=== PATIENT | male | born 1980 | race Caucasian/White ===

== ENCOUNTER 2022-03-23 14:05 | Inpatient (IN) | payer MEDICAID ==
[~2022-03-23] VITALS: Ht 177.8 cm; Wt 81.6 kg
[2022-03-23 14:13] VITALS: BP 124/66
--- NOTE | 2022-03-23 14:16 | NUR ---
42/M WALKED IN C/O RECTAL PAIN X 6 DAYS ACCOMPANIED BY SCROTAL PAIN AND SWELLING. DENIES BLOOD IN URINE. DENIES DYSURIA. AAO4, AMBULATORY, VITALS STABLE. PMH: DENIES
[2022-03-23] MEDS ORDERED: KETOROLAC 30 MG/ML VIAL IM ONE (15:15)
[2022-03-23 15:45] LABS: APPEARANCE,URINE CLEAR (CLEAR); BILIRUBIN,URINE 1+ (NEGATIVE); BLOOD, URINE TRACE-I (NEGATIVE); COLOR,URINE YELLOW (YELLOW); LEUKOCYTE ESTERASE ,URINE NEGATIVE (NEGATIVE); NITRITE, URINE NEGATIVE (NEGATIVE); UGLUCOSE 3+ (NEGATIVE)
[2022-03-23 15:52] LABS: RBC,URINE 0-5 /HPF (0-5); WBC,URINE 0-5 /HPF (0-5)
[2022-03-23 15:53] LABS: OTHER CASTS, URINE None Seen /LPF (None Seen)
[2022-03-23 16:00] VITALS: BP 116/65
[2022-03-23 16:21] LABS: BASOPHILS % (AUTO) 0.3 % (0.0-2.0); EOSINOPHILS % (AUTO) 0.2 % (0.0-4.0); HEMATOCRIT 37.8 % (36-52); HEMOGLOBIN 12.9 g/dL (12.0-18.0); LYMPHOCYTES % (AUTO) 8.2 % (20.5-51.1); MEAN CORPUSCULAR HEMOGLOBIN 30 pg (27-31); MEAN CORPUSCULAR HGB CONC 34 g/dL (33-37); MEAN CORPUSCULAR VOLUME 87.5 fL (80-94); MONOCYTES # (AUTO) 2.3 K/uL (0.8-1.0); MONOCYTES % (AUTO) 18.1 % (1.7-9.3); NEUTROPHILS # (AUTO) 9.1 K/uL (1.8-7.7); NEUTROPHILS % (AUTO) 73.2 % (42.2-75.2); PLATELET COUNT (AUTO) 148 K/uL (140-450); RED BLOOD CELL COUNT(AUTO) 4.32 MIL/uL (4.20-6.10); RED CELL DISTRIBUTION WIDTH 13.2 % (11.6-13.7); WHITE BLOOD COUNT (AUTO) 12.5 K/uL (4.8-10.8)
[2022-03-23 16:44] LABS: ALBUMIN 2.8 g/dL (3.4-5.0); ANION GAP 23.3 (8-16); CARBON DIOXIDE 14.9 mmol/L (21-32); CREATININE 0.8 mg/dL (0.6-1.3); POTASSIUM 3.2 mmol/L (3.5-5.1); TOTAL BILIRUBIN 0.8 mg/dL (0.0-1.0)
[2022-03-23] MEDS ORDERED: NACL 0.9% 1,000 ML IV ONE ×3 (16:50→19:00)
--- NOTE | 2022-03-23 17:00 | NUR ---
VBG DRAWN AND SENT TO RT. IV ESTABLISHED TO RIGHT AC WITH 20G
[2022-03-23] MEDS ORDERED: SULFAMETH/TRIMETH DS 800/160MG 1 TAB PO ONE (17:10)
[2022-03-23] MEDS ORDERED: INSULIN REGULAR, HUMAN 100 UNIT/ML VIAL IVP ONE (17:10)
[2022-03-23] MEDS ORDERED: POTASSIUM CHLORIDE 10 MEQ TABER PO ONE (17:25)
[2022-03-23] MEDS ORDERED: KCL 20 MEQ/WATER INJ PREMIX 100 ML IV ONE (17:25)
--- NOTE | 2022-03-23 17:37 | NUR ---
COVID SWAB COLLECTED AND SENT TO LAB
[2022-03-23] MEDS ORDERED: NACL 0.9% 1,500 ML IV SCH (17:55)
[2022-03-23] MEDS ORDERED: METO100T14 PO (18:08)
[2022-03-23] MEDS ORDERED: DOCUSATE SODIUM 100 MG GELCAP PO PRN (18:15)
[2022-03-23] MEDS ORDERED: ZOLPIDEM 5 MG TAB PO PRN (18:15)
[2022-03-23] MEDS ORDERED: guaiFENesin DM 200/20 MG-10 ML 10 ML UDC PO PRN (18:15)
[2022-03-23] MEDS ORDERED: ONDANSETRON 4 MG/2 ML VIAL IM/IVP PRN (18:15)
[2022-03-23] MEDS ORDERED: DEXTROSE 50% 50 ML SYR IVP PRN (18:15)
[2022-03-23] MEDS ORDERED: POTASSIUM CHLORIDE 10 MEQ TABER PO PRN (18:15)
--- NOTE | 2022-03-23 18:36 | NUR ---
PT WENT TO CT
[2022-03-23] MEDS: INSULIN LANTUS 100 UNITS/ML 10 ML VIAL SUBQ SCH (18:40)
[2022-03-23 18:43] LABS: CHOL/HDL RATIO 9.4 (1-4.5); FREE T4 (FREE THYROXINE) 1.59 ng/dL (0.76-1.46); MAGNESIUM 1.5 mg/dL (1.8-2.4); PHOSPHORUS 2.4 mg/dL (2.5-4.9); THYROID STIMULATING HORMONE 1.74 uIU/mL (0.34-3.74)
[2022-03-23 18:44] LABS: PROTHROMBIN TIME 13.6 secs (10.8-13.4)
--- NOTE | 2022-03-23 19:48 | NUR ---
RECEIVED A SHIFT REPORT FOR LASHONDA MCNULTY RN, PATIENT WILL BE ARRIVING SOON FOR ADMISSION. [email or web address]
--- NOTE | 2022-03-23 19:50 | NUR ---
Patient will be admitted to care of Telemetry Nurse Shannon. Admited to telemetry. Will go to room 107A. Belongings list completed. Report to Telemetry Nurse Shannon. Telemetry Nurse Shannon verbalized understanding of report, not further questions.
--- NOTE | 2022-03-23 19:59 | NUR ---
RECEIVED PATIENT VIA GURNEY BUT PATIENT CAN AMBULATE INDEPENDENTLY. PATIENT GAIT WAS STEADY BUT SLOW BECAUSE OF RECTAL PAIN. PATIENT DENIED AN PAIN JUST DISCOMFORT OF RECTAL AREA DURING MOVEMENT. DENIED PAIN MEDICATION AT THIS TIME. PATIENT WAS ABLE TO GIVE ALL OF HIS MEDICAL HISTORY WITHOUT INCIDENT. PATIENT ON ROOM AIR. IV NOTED ON RIGHT AC CLEAN AND PATENT AND WITHOUT PAIN. PATIENT WAS GIVEN AN INTRODUCTION TO HIS ROOM, HOW THE CALL LIGHT WORKS. RESTROOM AND VISITING HOURS FOR HIS SIGNIFICANT OTHER TO RETURN TOMORROW FOR VISITING HOURS. SIDE RAILS UP X 2 FOR SAFETY AND ADJUSTMENTS. CALL LIGHT WITHIN REACH. [email or web address]
[2022-03-23 20:00] VITALS: BP 102/66
[2022-03-23 20:17] LABS: ANION GAP 20.1 (8-16); CARBON DIOXIDE 16.4 mmol/L (21-32); CREATININE 0.7 mg/dL (0.6-1.3); POTASSIUM 3.5 mmol/L (3.5-5.1)
[2022-03-23] MEDS: BLOOD GLUCOSE MONITORING 1 DEV DEV FS SCH (21:06)
[2022-03-23] MEDS: INSULIN LISPRO SLIDING SCALE 100 UNITS/ML VIAL SUBQ PRN (21:06)
[2022-03-23] MEDS ORDERED: PANTOPRAZOLE 40 MG INJ VIAL IVP ONE (23:40)
[2022-03-24] VITALS: BP 121/67
--- NOTE | 2022-03-24 00:06 | NUR ---
RECEIVED ORDERS FOR PATIENT COMPLAINING OF HEARTBURN FOR ONE TIME ONLY IVP OF PROTONIX [address] PARR. ANY OTHER NON URGENT MATTERS WILL BE ADDRESSED IN THE MORNING. PATIENT VOMITED 200 ML. COVERING RN (SAPPHIRE GALINDO) WILL GIVE PRN OF ZOFRAN AND THE NEW ORDER FOR PROTONIX. [email or web address]
[2022-03-24 00:41] LABS: BARBITURATE, URINE NEGATIVE ng/ml (NEG <=200); BENZODIAZEPINE, URINE NEGATIVE ng/mL (NEG <=200); CANNABINOID, URINE NEGATIVE ng/mL (NEG <=50); COCAINE, URINE NEGATIVE ng/mL (NEG <=300); OPIATE, URINE NEGATIVE ng/mL (NEG <=2000); PHENCYCLIDINE SCREEN,URINE NEGATIVE ng/mL (NEG <=25)
--- NOTE | 2022-03-24 03:15 | NUR ---
PATIENT IN BED UN ABLE TO SLEEP BECAUSE OF HEARTBURN. NURSING WILL ENDORSE TO AM SHIFT OF THE COMPLAINTS AND THE PAIN PATIENT HAS BEEN IN DURING THE SHISFT. HOPEFULLY WE CAN GET IV PAIN MANAGEMENT FOR PAIN/DISCOMFORT. [email or web address]
[2022-03-24 04:00] VITALS: BP 127/62
[2022-03-24] MEDS: HYDROcodone/APAP 7.5/325 MG 1 TAB PO PRN ×4 (04:29→18:22)
--- NOTE | 2022-03-24 05:09 | NUR ---
PATIENT WAS GIVEN NORCO OF RECTAL DISCOMFORT. BLOOD PRESSURE WAS NOTED AT 127/62. PATIENT WAS CONCERNED OR BP MEDICATIONS AND WAS GIVEN EDUCATION ON THE CURRENT ORDERS AND WHEN THE MD COMES IN SPEAK WITH HIM REGARDING ANY CHANGED TO MEDICATIONS. PATIENT UNDERSTOOD AND AGREED. [email or web address]
[2022-03-24 06:26] LABS: BASOPHILS % (AUTO) 0.1 % (0.0-2.0); EOSINOPHILS % (AUTO) 0.1 % (0.0-4.0); HEMATOCRIT 36.8 % (36-52); HEMOGLOBIN 12.2 g/dL (12.0-18.0); LYMPHOCYTES # (AUTO) 1.1 K/uL (2.0-11.5); LYMPHOCYTES % (AUTO) 7.4 % (20.5-51.1); MEAN CORPUSCULAR HEMOGLOBIN 30 pg (27-31); MEAN CORPUSCULAR HGB CONC 33 g/dL (33-37); MONOCYTES # (AUTO) 2.7 K/uL (0.8-1.0); MONOCYTES % (AUTO) 17.7 % (1.7-9.3); NEUTROPHILS # (AUTO) 11.4 K/uL (1.8-7.7); PLATELET COUNT (AUTO) 158 K/uL (140-450); RED BLOOD CELL COUNT(AUTO) 4.09 MIL/uL (4.20-6.10); RED CELL DISTRIBUTION WIDTH 13.4 % (11.6-13.7); WHITE BLOOD COUNT (AUTO) 15.3 K/uL (4.8-10.8)
[2022-03-24 06:53] LABS: ANION GAP 23.4 (8-16); CREATININE 0.8 mg/dL (0.6-1.3); POTASSIUM 3.9 mmol/L (3.5-5.1)
[2022-03-24] MEDS: BLOOD GLUCOSE MONITORING 1 DEV DEV FS SCH ×4 (06:56→20:49)
[2022-03-24] MEDS: INSULIN LISPRO SLIDING SCALE 100 UNITS/ML VIAL SUBQ PRN ×4 (06:56→20:48)
[2022-03-24 07:19] LABS: NEUTROPHILS % (AUTO) 74.7 % (42.2-75.2)
[2022-03-24 07:23] LABS: CARBON DIOXIDE 9.5 mmol/L (21-32)
--- NOTE | 2022-03-24 07:25 | NUR ---
RECEIVED PATIENT FROM OFFC SPEC NURSE FOR CONTINUITY OF CARE. PT IS AOX4, ABLE TO MAKE NEEDS KNOWN. ON ROOM AIR AND NO RESPIRATORY DISTRESS NOTED. SKIN IS WARM, DRY, AND INTACT. HAS RAC IV INTACT AND PATENT, INFUSING FLUIDS WELL. DENIES PAIN AT THE MOMENT. PLAN OF CARE DISCUSSED. SAFETY PRECAUTIONS IN PLACE. CALL LIGHT WITHIN REACH. WILL CONTINUE TO MONITOR.
[2022-03-24 08:00] VITALS: BP 123/59
[2022-03-24] MEDS: PANTOPRAZOLE 40 MG TABEC PO SCH (08:04)
[2022-03-24 08:07] LABS: T4 (THYROXINE) 8.1 ug/dL (4.5-12.0)
[2022-03-24] MEDS: INSULIN LANTUS 100 UNITS/ML 10 ML VIAL SUBQ SCH (08:07)
[2022-03-24] MEDS ORDERED: NACL 0.9% 1,000 ML IV SCH (09:30)
--- NOTE | 2022-03-24 09:30 | NUR ---
ALL SCHEDULED MEDS GIVEN. PT IS STABLE. NO DISTRESS NOTED. WILL CONTINUE TO MONITOR.
--- NOTE | 2022-03-24 10:19 | NUR ---
PT COMPLAINED OF 6/10 PAIN IN PERINEAL AREA. ADMINISTERED PRN PAIN MEDS PER MD ORDERED.
[2022-03-24] MEDS ORDERED: SODIUM BICARBONATE 8.4% 50 MEQ in DEXTROSE 5% 1,000 ML IV SCH (11:00)
[2022-03-24 12:00] VITALS: BP 121/68
[2022-03-24] MEDS: SODIUM BICARBONATE 8.4% 150 MEQ in DEXTROSE 5% 1,000 ML IV SCH ×2 (14:41→22:10)
[2022-03-24 16:00] VITALS: BP 120/62
[2022-03-24] MEDS: ACETAMINOPHEN 325 MG TAB PO PRN ×2 (17:19→21:28)
--- NOTE | 2022-03-24 17:19 | NUR ---
PT COMPLAINED OF 3/10 PAIN IN PERINEAL AREA. ADMINISTERED PRN PAIN MEDS PER MD ORDERED.
--- NOTE | 2022-03-24 18:22 | NUR ---
PT COMPLAINED OF 6/10 PAIN IN PERINEAL AREA. ADMINISTERED PRN PAIN MEDS PER MD ORDERED.
--- NOTE | 2022-03-24 19:25 | NUR ---
RECEIVED PATIENT FROM AM NURSE FOR CONTINUITY OF CARE. PT IS STABLE
[2022-03-24 20:00] VITALS: BP 113/55
[2022-03-25] VITALS: BP 118/63
--- NOTE | 2022-03-25 | NUR ---
PATIENT SLEEPING AT THIS TIME. NO S/SX OF DISTRESS NOTED
[2022-03-25] MEDS: HYDROcodone/APAP 7.5/325 MG 1 TAB PO PRN ×2 (01:33→07:01)
[2022-03-25 04:00] VITALS: BP 124/60
[2022-03-25] MEDS: SODIUM BICARBONATE 8.4% 150 MEQ in DEXTROSE 5% 1,000 ML IV SCH (06:14)
[2022-03-25] MEDS: INSULIN LISPRO SLIDING SCALE 100 UNITS/ML VIAL SUBQ PRN ×4 (06:33→20:56)
[2022-03-25 06:36] LABS: BASOPHILS % (AUTO) 0.3 % (0.0-2.0); EOSINOPHILS # (AUTO) 0.1 K/uL (0-0.4); EOSINOPHILS % (AUTO) 0.5 % (0.0-4.0); HEMATOCRIT 36.4 % (36-52); HEMOGLOBIN 12.2 g/dL (12.0-18.0); LYMPHOCYTES # (AUTO) 1.1 K/uL (2.0-11.5); MEAN CORPUSCULAR HEMOGLOBIN 29 pg (27-31); MEAN CORPUSCULAR HGB CONC 34 g/dL (33-37); MEAN CORPUSCULAR VOLUME 87.8 fL (80-94); NEUTROPHILS # (AUTO) 10.6 K/uL (1.8-7.7); PLATELET COUNT (AUTO) 178 K/uL (140-450); RED BLOOD CELL COUNT(AUTO) 4.15 MIL/uL (4.20-6.10); RED CELL DISTRIBUTION WIDTH 13.5 % (11.6-13.7); WHITE BLOOD COUNT (AUTO) 13.7 K/uL (4.8-10.8)
[2022-03-25] MEDS: BLOOD GLUCOSE MONITORING 1 DEV DEV FS SCH ×4 (06:42→20:57)
[2022-03-25] MEDS ORDERED: HYDROcodone/APAP 5/325 MG 1 TAB TAB ONE ×2 (06:59→07:08)
--- NOTE | 2022-03-25 07:30 | NUR ---
RECEIVED PT FROM ADVERTISER NURSE FOR CONTINUITY OF CARE. PT IS STABLE.
[2022-03-25 07:40] LABS: CARBON DIOXIDE 21.7 mmol/L (21-32); CREATININE 0.7 mg/dL (0.6-1.3)
[2022-03-25] MEDS: ACETAMINOPHEN 325 MG TAB PO PRN (07:49)
[2022-03-25 07:59] LABS: POTASSIUM 2.7 mmol/L (3.5-5.1)
[2022-03-25 08:00] VITALS: BP 114/56
[2022-03-25 08:28] LABS: LYMPHOCYTES % (AUTO) 8.1 % (20.5-51.1); MONOCYTES % (AUTO) 14.3 % (1.7-9.3); NEUTROPHILS % (AUTO) 76.8 % (42.2-75.2)
[2022-03-25] MEDS: PANTOPRAZOLE 40 MG TABEC PO SCH (08:46)
[2022-03-25] MEDS ORDERED: INSULIN LANTUS 100 UNITS/ML 10 ML VIAL SUBQ SCH (09:00)
--- NOTE | 2022-03-25 09:21 | NUR ---
PATIENT HAS BEEN SCREENED AND CATEGORIZED HIGH NUTRITION RISK. PATIENT WILL BE SEEN WITHIN 1-2 DAYS OF ADMISSION. 03/23/22-03/25/[address] REFERRAL RECEIVED FOR UNCONTROLLED DIABETES
[2022-03-25] MEDS ORDERED: KCL 20 MEQ/WATER INJ PREMIX 200 ML IV ONE (09:25)
--- NOTE | 2022-03-25 09:30 | NUR ---
ALL SCHEDULED MEDS GIVEN. PT IS STABLE. NO DISTRESS NOTED. WILL CONTINUE TO MONITOR.
[2022-03-25] MEDS: KETOROLAC 30 MG/ML VIAL IVP PRN ×2 (13:06→20:16)
--- NOTE | 2022-03-25 13:06 | NUR ---
PT COMPLAINED OF 9/10 PAIN IN PERINEAL AREA. ADMINISTERED PRN PAIN MEDS PER MD ORDERED.
[2022-03-25] MEDS ORDERED: POTASSIUM CHLORIDE 10 MEQ TABER PO SCH (13:09)
--- NOTE | 2022-03-25 13:12 | NUR ---
DID NOT ADMINISTERED SCHEDULED ONE TIME KDUR [address] MANCUSO THAT PATIENT ALREADY RECEIVED KDUR 40 MEQ PO THIS MORNING AND CURRENTLY RUNNING KRIDER 40 MEQ IV.
[2022-03-25] MEDS ORDERED: MAG SULF 2000 MG/WATER PREMIX 50 ML IV SCH (13:18)
[2022-03-25] MEDS: NACL 0.9% 1,000 ML IV SCH (14:19)
[2022-03-25 16:00] VITALS: BP 106/64
--- NOTE | 2022-03-25 18:09 | NUR ---
BS CHECK WAS 209. ADMINISTERED 4 UNITS OF INSULIN SQ PER MD ORDERED.
--- NOTE | 2022-03-25 19:29 | NUR ---
ENDORSED TO SOCIAL SERVICES DIRECTOR NURSE FOR CONTINUITY OF CARE. PT IS STABLE.
--- NOTE | 2022-03-25 19:30 | NUR ---
RECEIVED PT FROM AM NURSE FOR CONTINUITY OF CARE. PT IS STABLE
--- NOTE | 2022-03-25 20:13 | NUR ---
03/25/22 RD INITIAL ASSESSMENT COMPLETED. PLEASE REFER TO NUTRITION ASSESSMENT UNDER CARE ACTIVITY FOR ESTIMATED NUTRITIONAL NEEDS. 1. CONTINUE CLEAR LIQUID, 60 G CCHO DIET TOLERATED. -WHEN/IF MEDICALLY APPROPRIATE, GRADUALLY ADVANCE TO 60 G CCHO DIET, REGULAR TEXTURE 2. MONITOR BLOOD GLUCOSE 3. PROVIDED DIABETIC EDUCATION WITH HANDOUT 4. RD TO FOLLOW-UP 3-5 DAYS, MODERATE RISK KARLA DILL RD
[2022-03-26] MEDS: ACETAMINOPHEN 325 MG TAB PO PRN (02:59)
[2022-03-26 04:00] VITALS: BP 119/69
[2022-03-26] MEDS: KETOROLAC 30 MG/ML VIAL IVP PRN (06:07)
[2022-03-26 06:15] LABS: BASOPHILS # (AUTO) 0.1 K/uL (0.00-0.22); BASOPHILS % (AUTO) 0.6 % (0.0-2.0); EOSINOPHILS # (AUTO) 0.1 K/uL (0-0.4); EOSINOPHILS % (AUTO) 0.6 % (0.0-4.0); HEMATOCRIT 35.6 % (36-52); HEMOGLOBIN 12.2 g/dL (12.0-18.0); LYMPHOCYTES # (AUTO) 1.3 K/uL (2.0-11.5); LYMPHOCYTES % (AUTO) 11.1 % (20.5-51.1); MEAN CORPUSCULAR HEMOGLOBIN 29 pg (27-31); MEAN CORPUSCULAR HGB CONC 34 g/dL (33-37); MEAN CORPUSCULAR VOLUME 85.6 fL (80-94); MONOCYTES # (AUTO) 1.5 K/uL (0.8-1.0); MONOCYTES % (AUTO) 13.4 % (1.7-9.3); NEUTROPHILS # (AUTO) 8.5 K/uL (1.8-7.7); NEUTROPHILS % (AUTO) 74.3 % (42.2-75.2); PLATELET COUNT (AUTO) 238 K/uL (140-450); RED BLOOD CELL COUNT(AUTO) 4.16 MIL/uL (4.20-6.10); WHITE BLOOD COUNT (AUTO) 11.5 K/uL (4.8-10.8)
[2022-03-26 06:33] LABS: ANION GAP 10.9 (8-16); CARBON DIOXIDE 28.5 mmol/L (21-32); CREATININE 0.5 mg/dL (0.6-1.3)
[2022-03-26] MEDS: INSULIN LISPRO SLIDING SCALE 100 UNITS/ML VIAL SUBQ PRN ×4 (06:44→21:22)
[2022-03-26] MEDS: BLOOD GLUCOSE MONITORING 1 DEV DEV FS SCH ×4 (06:46→21:18)
[2022-03-26 08:00] VITALS: BP 104/60
[2022-03-26] MEDS: INSULIN LANTUS 100 UNITS/ML 10 ML VIAL SUBQ SCH (08:55)
[2022-03-26] MEDS: PANTOPRAZOLE 40 MG TABEC PO SCH (08:58)
[2022-03-26] MEDS: TAMSULOSIN 0.4 MG CAP PO SCH (08:58)
--- NOTE | 2022-03-26 09:00 | NUR ---
ADMINISTERED ALL SCHEDULED MEDS. PT TOLERATING WELL.
[2022-03-26 09:46] LABS: POTASSIUM 2.4 mmol/L (3.5-5.1)
[2022-03-26] MEDS: NACL 0.9% 1,000 ML IV SCH (10:10)
[2022-03-26] MEDS ORDERED: POTASSIUM CHLORIDE 10 MEQ TABER PO SCH (10:15)
--- NOTE | 2022-03-26 10:15 | NUR ---
DR COTTON ORDERED PT TO TAKE 60MEQ ORAL POTASSIUM AND IV K RIDER.
[2022-03-26] MEDS ORDERED: KCL 20 MEQ/WATER INJ PREMIX 200 ML IV SCH (11:00)
[2022-03-26] MEDS: HYDROcodone/APAP 7.5/325 MG 1 TAB PO PRN ×2 (13:07→21:06)
--- NOTE | 2022-03-26 13:07 | NUR ---
PT C/O PAIN 08/04 ON SCROTUM. REQUEST TAKING NORCO. STATES THAT THE IV PAIN MEDICATION MAKES HIM FEEL DIZZY AND HE DOESN'T WANT TO TAKE THAT RIGHT NOW. PT MEDICATED WITH NORCO. TOLERATING WELL.
--- NOTE | 2022-03-26 14:47 | NUR ---
MAKING ROUNDS PT IN BED AWAKE RESTING.
[2022-03-26 16:00] VITALS: BP 104/57
--- NOTE | 2022-03-26 19:00 | NUR ---
ENDORSED PT TO TITLE SEARCHER NURSE. PT IN STABLE CONDITION.
--- NOTE | 2022-03-26 21:06 | NUR ---
PT COMPLAINTS A LOT OF PAIN ON NADIR AREA 10/10, PT VERBALIZES TO TAKE NORCO 7.5 ONLY AND REFUSE OTHER PAIN MEDICATION.
--- NOTE | 2022-03-26 21:22 | NUR ---
PT BLOOD SUGAR = 200 = 2 UNITS INSULIN HUMOLOG ADMINISTERED.
--- NOTE | 2022-03-27 00:30 | NUR ---
ASSUMED CARE OF PATIENT AT THIS TIME. PATIENT SLEEPING COMFORTABLY WITH NO ACUTE DISTRESS NOTED. IVF INFUSING WITH NO REDNESS OR IRRITATION TO SITE. WILL CONTINUE TO MONITOR FOR SAFETY. Radha CORNELL RN
[2022-03-27 04:00] VITALS: BP 110/60
[2022-03-27] MEDS: BLOOD GLUCOSE MONITORING 1 DEV DEV FS SCH ×4 (06:27→20:20)
[2022-03-27] MEDS: NACL 0.9% 1,000 ML IV SCH (06:28)
--- NOTE | 2022-03-27 06:28 | NUR ---
PATIENT BLOOD SUGAR 171. NO INSULIN GIVEN DUE TO PATIENT BEING NPO FOR SURGERY TODAY. Radha CORNELL RN.
--- NOTE | 2022-03-27 07:20 | NUR ---
ASSUMED CONTINUITY OF CARE. INITIAL ASSESSMENT DONE. KEEP COMFORTABLE ON BED. EXPLAINED DIAGNOSIS, PLAN OF CARE. PAIN MANAGEMENT TEACHING, PRE-OP, USE OF CALL LIGHT/BED/TV/BATHROOM. VERBALIZED UNDERSTANDING. CALL LIGHT WITHIN REACH.
[2022-03-27 07:23] LABS: HEMATOCRIT 33.8 % (36-52); HEMOGLOBIN 11.8 g/dL (12.0-18.0); MEAN CORPUSCULAR HEMOGLOBIN 30 pg (27-31); MEAN CORPUSCULAR HGB CONC 35 g/dL (33-37); MEAN CORPUSCULAR VOLUME 85.4 fL (80-94); PLATELET COUNT (AUTO) 304 K/uL (140-450); RED BLOOD CELL COUNT(AUTO) 3.96 MIL/uL (4.20-6.10); RED CELL DISTRIBUTION WIDTH 13.3 % (11.6-13.7); WHITE BLOOD COUNT (AUTO) 13.3 K/uL (4.8-10.8)
[2022-03-27 07:31] LABS: ANION GAP 10.9 (8-16); CREATININE 0.6 mg/dL (0.6-1.3)
[2022-03-27 08:00] VITALS: BP 106/59
[2022-03-27 08:24] LABS: POTASSIUM 2.9 mmol/L (3.5-5.1)
[2022-03-27] MEDS: TAMSULOSIN 0.4 MG CAP PO SCH (08:30)
[2022-03-27] MEDS: INSULIN LANTUS 100 UNITS/ML 10 ML VIAL SUBQ SCH (09:00)
[2022-03-27] MEDS ORDERED: POTASSIUM CHLORIDE 40 MEQ, LIDOCAINE 1% 25 MG in NACL 0.9% 250 ML IV SCH (09:00)
[2022-03-27] MEDS: PANTOPRAZOLE 40 MG TABEC PO SCH (09:00)
[2022-03-27 10:30] LABS: MYELOCYTES % 1 % (0-0)
[2022-03-27 10:56] LABS: EOSINOPHILS % (MANUAL) 2 % (0-4); LYMPHOCYTES % (MANUAL) 11 % (20-46); MONOCYTES % (MANUAL) 13 % (5-12)
--- NOTE | 2022-03-27 11:21 | NUR ---
WENT TO VIA S[facility]OR. IN STABLE CONDITION. ROCEPHIN 1 GM IVPB GIVEN TO JADA -BROOD STATION MANAGER DUE TO Neeta ALVAREZ IV STILL INFUSING. Addendum: 03/27/22 at 1541 by David Abernathy LVN LVN ADDED INFORMATION: PT. WENT TO OR.
[2022-03-27] MEDS ORDERED: fentaNYL citrate 0.05 MG/ML VIAL ONE (11:55)
[2022-03-27] MEDS ORDERED: PROPOFOL 200 MG/20 ML VIAL IV ONE (11:56)
[2022-03-27] MEDS ORDERED: SEVOFLURANE 250 ML BTL INH ONE (12:25)
[2022-03-27] MEDS ORDERED: BUPIVACAINE-MPF/EPI 0.5% 30 ML VIAL INJ ONE (12:27)
[2022-03-27] MEDS ORDERED: LIDOCAINE 1% 500 MG/50 ML VIAL ONE ×2 (12:27→12:28)
[2022-03-27] MEDS ORDERED: ONDANSETRON 4 MG/2 ML VIAL ONE (12:40)
[2022-03-27] MEDS ORDERED: DEXAMETHASONE 4 MG/ML VIAL ONE (12:42)
[2022-03-27] MEDS ORDERED: MEPERIDINE 50 MG/ML SYR ONE (12:43)
[2022-03-27] MEDS ORDERED: MEPERIDINE 25 MG/ML SYR ONE ×2 (13:03)
--- NOTE | 2022-03-27 13:55 | NUR ---
BACK FROM OR VIA GURANGELI. A & O X4. NO C/O PAIN. KEEP COMFORTABLE ON BED. CALL LIGHT WITHIN REACH. JADA EmeryPRODUCTION BROACHER REPORTED THAT ROCEPHIN 1 GM IVPB WAS GIVEN AT 1230.
[2022-03-27 14:00] VITALS: BP 109/62
--- NOTE | 2022-03-27 14:13 | NUR ---
DR. OBANDO CAME AND SPOKE TO PT. AND PT. FAMILY MEMBERS AT BEDSIDE. INFORMED DR. OBANDO ABOUT PT. LEFT INGUINAL DRAINAGE. GOT ORDER FROM DR. OBANDO OF US LEFT INGUINAL. INFORMED CHARGE NURSE GAGAN DUPREE.
[2022-03-27 14:30] VITALS: BP 107/66
[2022-03-27 15:00] VITALS: BP 112/67
--- NOTE | 2022-03-27 15:22 | NUR ---
US TECH CAME FOR PT. US AT BEDSIDE.
[2022-03-27 16:00] VITALS: BP 112/65
--- NOTE | 2022-03-27 16:14 | NUR ---
DC PLANNING RACHAEL MET WITH PT AT BEDSIDE TO COMPLETE ASSESSMENT. PT ALERT AND ORIENTED AND ABLE TO PROVIDE ALL OF HER OWN INFORMATION.PT REPORTS RESIDING IN A SINGLE-STORY HOME, AT THE ADDRESS LISTED ON FILE. PT IDENTIFIED AN AWAN, GF, EMERGENCY CONTACT AND DECLINED TO ADD ADDITIONAL CONTACT. PT DENIES AD IN PLACE AND ACCEPTED AD OFFERED BY RACHAEL. PT REPORTS LAST VISIT WITH PCP 1 YR AGO. SPOKE TO PT ABOUT THE IMPORTANCE OF FOLLOWING UP WITH [facility], TO OBTAIN FULL SCOPE MEDI-KAYLIE. EXPLAINED TO PT IF HE DOES NOT HEAR FROM REP THAT HE MUST FOLLOW UP WITH [facility] OFFICE AND TURNING IN ALL REQUIRES DOCUMENTS SO THAT FULL SCOPE MEDICAL IS OBTAINED. PT REPORTS MEDICATION COMPLIANCE HOWEVER, PT REPORTS RECEIVING MEDICATION FROM [facility] THAT CAN BE DIFFICULT TO OBTAIN. PT REPORTS BEING INDEPENDENT AND DENIES USE OF DME, PT REPORTS REQUIRING ASSISTANCE WITH ADL'S THAT HIS GF AIDS WITH. PT DENIES HX OF DIABETES, DIALYSIS TX. PT REPORTS CHRONIC USE OF ALCOHOL USE, PT REPORTS DRINKING EVERYDAY AND REPORTS DRINKING 12 PACK ALONE. RACHAEL PROVIDED PT WITH PSYCHO EDUCATION ON LONG-TERM ALCOHOL USE, PT RECEPTIVE AND ACCEPTED SUBSTANCE USE RESOURCES OFFERED BY RACHAEL. PT DENIES HH, AND SNF PLACEMENT. PT REPORTS DC PLAN IS TO RETURN HOME WITH GF P/UP, WHEN STABLE. Addendum: 03/27/22 at 1617 by Osman RUTHERFORD Amended: Links added.
[2022-03-27] MEDS: INSULIN LISPRO SLIDING SCALE 100 UNITS/ML VIAL SUBQ PRN ×2 (16:24→20:21)
--- NOTE | 2022-03-27 19:26 | NUR ---
REPORT GIVEN TO REJI DUPREE FOR CONTINUITY OF CARE. IVF INFUSING WELL. IN STABLE CONDITION.
--- NOTE | 2022-03-27 19:27 | NUR ---
RECEIVED PT FROM MORNING SHIFT NURSE. PT LYING ON THE BED WITH ON BEDSIDE. PT IS AOX4, BEDREST, ABLE TO VERBALIZE NEEDS AND ABLE TO FOLLOW COMMANDS. PT IS ON 2L NC AND ON CCHO DIET. PT HAS IV ON RIGHT AC GAUGE 20 RUNNING WITH NS AT 50 ML/HR. PT SKIN IS INTACT BUT PT HAS LEFT INGUINAL ABCESS WITH DRESSING AND FOR WOUND EVAL GREYSON. PT DENIES PAIN. NO S/S OF RESPIRATORY DISTRESS NOTED. ALL SAFETY MEASURES IMPLEMENTED. BED IN LOW POSITION, BED WHEELS ON LOCK AND CALL LIGHT WITHIN REACH.
--- NOTE | 2022-03-27 20:20 | NUR ---
PT BLOOD GLUCOSE ID 37. HUMALOG INSULIN 4 UNITS WAS GIVEN TO PT. ALL SAFETY MEASURES IMPLEMENTED. BED IN LOW POSITION, BED WHEELS ON LOCK AND CALL LIGHT WITHIN REACH. Addendum: 03/28/22 at 0641 by Magaly Earl RN WRONG DATA
--- NOTE | 2022-03-27 20:20 | NUR ---
PT BLOOD GLUCOSE IS 237. HUMALOG INSULIN 4 UNITS WAS GIVEN TO PT. ALL SAFETY MEASURES IMPLEMENTED. BED IN LOW POSITION, BED WHEELS ON LOCK AND CALL LIGHT WITHIN REACH.
--- NOTE | 2022-03-27 22:00 | NUR ---
PT WAS GIVEN ICE CHIPS PER PT REQUEST. PT DENIES PAIN AT THIS TIME. NO S/S OF RESPIRATORY DISTRESS NOTED. ALL SAFETY MEASURES IMPLEMENTED. BED IN LOW POSITION, BED WHEELS ON LOCK AND CALL LIGHT WITHIN REACH.
[2022-03-28] VITALS: BP 106/67
--- NOTE | 2022-03-28 | NUR ---
PT REQUEST TO CHANGE HIS BEDDING AND WAS GIVEN DISPOSABLE UNDERWEAR AND CHANGED WOUND DRESSING. ALL SAFETY MEASURES IMPLEMENTED. BED IN LOW POSITION, BED WHEELS ON LOCK AND CALL LIGHT WITHIN REACH.
--- NOTE | 2022-03-28 02:00 | NUR ---
PT IS ON SLEEP. CHEST RISE AND FALL SYMMETRICALLY NOTED. RESPIRATION IS EVEN AND UNLABORED. ALL SAFETY MEASURES IMPLEMENTED. BED IN LOW POSITION, BED WHEELS ON LOCK AND CALL LIGHT WITHIN REACH.
[2022-03-28] MEDS: NACL 0.9% 1,000 ML IV SCH ×2 (02:19→22:11)
--- NOTE | 2022-03-28 04:00 | NUR ---
PT WAS GIVEN ADDITIONAL WARM BLANKET PER PT REQUEST. NO COMPLAIN OF PAIN AT THIS TIME. NO S/S OF RESPIRATORY DISTRESS NOTED. ALL SAFETY MEASURES IMPLEMENTED. BED IN LOW POSITION, BED WHEELS ON LOCK AND CALL LIGHT WITHIN REACH.
[2022-03-28] MEDS: BLOOD GLUCOSE MONITORING 1 DEV DEV FS SCH ×4 (06:37→20:51)
[2022-03-28] MEDS: INSULIN LISPRO SLIDING SCALE 100 UNITS/ML VIAL SUBQ PRN ×4 (06:37→20:51)
--- NOTE | 2022-03-28 06:37 | NUR ---
PT BLOOD GLUCOSE IS 195. HUMALOG INSULIN 2 UNITS WAS GIVEN TO PT. ALL SAFETY MEASURES IMPLEMENTED. BED IN LOW POSITION, BED WHEELS ON LOCK AND CALL LIGHT WITHIN REACH.
[2022-03-28 07:14] LABS: BASOPHILS % (AUTO) 0.1 % (0.0-2.0); HEMOGLOBIN 12.1 g/dL (12.0-18.0); LYMPHOCYTES % (AUTO) 8.6 % (20.5-51.1); MEAN CORPUSCULAR HEMOGLOBIN 29 pg (27-31); MEAN CORPUSCULAR HGB CONC 34 g/dL (33-37); MEAN CORPUSCULAR VOLUME 87.3 fL (80-94); MONOCYTES # (AUTO) 0.9 K/uL (0.8-1.0); MONOCYTES % (AUTO) 7.8 % (1.7-9.3); NEUTROPHILS # (AUTO) 9.9 K/uL (1.8-7.7); NEUTROPHILS % (AUTO) 83.5 % (42.2-75.2); PLATELET COUNT (AUTO) 364 K/uL (140-450); RED BLOOD CELL COUNT(AUTO) 4.12 MIL/uL (4.20-6.10); RED CELL DISTRIBUTION WIDTH 13.1 % (11.6-13.7); WHITE BLOOD COUNT (AUTO) 11.9 K/uL (4.8-10.8)
[2022-03-28 07:17] LABS: ANION GAP 15.4 (8-16); CARBON DIOXIDE 25.1 mmol/L (21-32); CREATININE 0.5 mg/dL (0.6-1.3); POTASSIUM 3.5 mmol/L (3.5-5.1)
--- NOTE | 2022-03-28 07:42 | NUR ---
PT IS STABLE. NO ACUTE EVENTS THROUGHOUT THE NIGHT.NO S/SX OF DISTRESS AT THIS MOMENT.ALL NEEDS ATTENDED. ALL PRECAUTIONS IN PLACE. CALL LIGHT WITHIN REACH. ENDORSED TO DAY RN.
[2022-03-28 08:00] VITALS: BP 109/68
[2022-03-28] MEDS: TAMSULOSIN 0.4 MG CAP PO SCH (09:01)
[2022-03-28] MEDS: PANTOPRAZOLE 40 MG TABEC PO SCH (09:01)
[2022-03-28] MEDS: INSULIN LANTUS 100 UNITS/ML 10 ML VIAL SUBQ SCH (09:08)
[2022-03-28] MEDS: HYDROcodone/APAP 7.5/325 MG 1 TAB PO PRN ×2 (12:37→20:57)
[2022-03-28 16:00] VITALS: BP 116/65
[2022-03-28] MEDS: metFORMIN 850 MG TAB PO SCH (17:09)
--- NOTE | 2022-03-28 19:43 | NUR ---
ENDORSE PATIENT IN STABLE CONDITION TO PM SHIFT NURSE WHILE PIV INFUSING NS @50ML/HR VIA RAC 20G SITE
--- NOTE | 2022-03-28 19:44 | NUR ---
RECEIVED REPORT FROM DAY SHIFT NURSE RAINE FOR CONTINUITY OF CARE. PT AWAKE WITH FAMILY MEMBER AT BEDSIDE. RESPIRATIONS EVEN AND UNLABORED ON RA. IV SITE ON RAC 20G INFUSING IVF. INITIAL ASSESSMENT DONE. POC DISCUSSED WITH THE PT AND RN BRIE. CALL LIGHT WITHIN REACH. SAFETY PRECAUTIONS IN PLACE.
[2022-03-28 20:00] VITALS: BP 114/68
--- NOTE | 2022-03-28 20:00 | NUR ---
Patient's Plan of Care was discussed and reviewed with JUAN: OTTO
--- NOTE | 2022-03-28 20:57 | NUR ---
SLIDING SCALE INSULIN GIVEN FOR BS 260. PT COMPLAINED OF 6/10. PRN PAIN MED ADMINISTERED PER MD ORDERED.
[2022-03-29] MEDS: HYDROcodone/APAP 7.5/325 MG 1 TAB PO PRN ×2 (03:49→10:52)
--- NOTE | 2022-03-29 03:49 | NUR ---
PT COMPLAINED OF PAIN 08/04. PRN PAIN MED GIVEN MD ORDERED. V/S TAKEN, WITHIN NORMAL LIMITS.
[2022-03-29 04:00] VITALS: BP 108/69
[2022-03-29] MEDS: INSULIN LISPRO SLIDING SCALE 100 UNITS/ML VIAL SUBQ PRN ×3 (06:33→17:32)
[2022-03-29] MEDS: BLOOD GLUCOSE MONITORING 1 DEV DEV FS SCH ×3 (06:33→16:30)
--- NOTE | 2022-03-29 06:41 | NUR ---
BLOOD SUGAR CHECK DONE. SLIDING SCALE INSULIN ADMINISTERED.
[2022-03-29 06:59] LABS: BASOPHILS % (AUTO) 0.4 % (0.0-2.0); EOSINOPHILS # (AUTO) 0.1 K/uL (0-0.4); EOSINOPHILS % (AUTO) 1.2 % (0.0-4.0); HEMOGLOBIN 11.3 g/dL (12.0-18.0); LYMPHOCYTES # (AUTO) 2.2 K/uL (2.0-11.5); LYMPHOCYTES % (AUTO) 18.2 % (20.5-51.1); MEAN CORPUSCULAR HEMOGLOBIN 29 pg (27-31); MEAN CORPUSCULAR HGB CONC 33 g/dL (33-37); MEAN CORPUSCULAR VOLUME 87.6 fL (80-94); MONOCYTES # (AUTO) 1.4 K/uL (0.8-1.0); MONOCYTES % (AUTO) 11.6 % (1.7-9.3); NEUTROPHILS # (AUTO) 8.2 K/uL (1.8-7.7); NEUTROPHILS % (AUTO) 68.6 % (42.2-75.2); PLATELET COUNT (AUTO) 389 K/uL (140-450); RED BLOOD CELL COUNT(AUTO) 3.88 MIL/uL (4.20-6.10); RED CELL DISTRIBUTION WIDTH 13.3 % (11.6-13.7)
[2022-03-29 07:22] LABS: ANION GAP 9.4 (8-16); CARBON DIOXIDE 31.2 mmol/L (21-32); CREATININE 0.6 mg/dL (0.6-1.3); POTASSIUM 3.6 mmol/L (3.5-5.1)
--- NOTE | 2022-03-29 07:29 | NUR ---
ENDORSED PT TO AUDIOLOGY DOCTOR NURSE CHINEDU FOR CONTINUITY OF CARE. ALL NEEDS MET THROUGHOUT SHIFT. PT IS STABLE. Addendum: 03/29/22 at 0732 by Kaila Hernandez LVN ENDORSED PT TO DAY SHIFT NURSE CHE.
[2022-03-29 08:00] VITALS: BP 118/70
--- NOTE | 2022-03-29 08:00 | NUR ---
Patient's Plan of Care was discussed and reviewed with CORRECTIONAL CORPORAL: CHINEDU
[2022-03-29] MEDS: INSULIN LANTUS 100 UNITS/ML 10 ML VIAL SUBQ SCH (08:40)
[2022-03-29] MEDS: metFORMIN 850 MG TAB PO SCH ×2 (08:41→17:33)
[2022-03-29] MEDS: PANTOPRAZOLE 40 MG TABEC PO SCH (08:41)
--- NOTE | 2022-03-29 08:41 | NUR ---
SCHEDULED MEDICATIONS GIVEN. TOLERATING WELL.
[2022-03-29] MEDS: TAMSULOSIN 0.4 MG CAP PO SCH (08:42)
--- NOTE | 2022-03-29 10:52 | NUR ---
PRN NORCO FOR PAIN MANAGEMENT WAS GIVEN.
[2022-03-29] MEDS ORDERED: LEVO-481 PO (10:56)
[2022-03-29] MEDS ORDERED: METF-713 PO (10:56)
[2022-03-29] MEDS ORDERED: HYDR-5080 PO (10:57)
--- NOTE | 2022-03-29 11:17 | NUR ---
SPOKE TO PICC LINE NURSE JAYLAN FOR CANCELLATION OF MIDLINE. INSERTED IV TO RT HAND. WITH BLOOD FLOW RETURN. Addendum: 03/29/22 at 1120 by CHINEDU CHRISTINA LVN ENTERED WRONG MEDICATION Addendum: 03/29/22 at 1120 by CHINEDU CHRISTINA LVN ENTERED WRONG DOCUMENTATION
--- NOTE | 2022-03-29 11:37 | NUR ---
BS CHECK 226. INSULIN WAS GIVEN PER SLIDING SCALE.
--- NOTE | 2022-03-29 13:35 | NUR ---
WOUND CARE NOTE: WOUND ASSESSMENT DONE TO THIS 42 Y/O PT AAX4.S/P LEFT NADIR-ANAL ABSCESS INCISION AND DRAINAGE. WOUND 1X0.5X7CM TUNNEL WOUND, WOUND BED MOIST, RED GRANULATION TISSUE WITH MODERATE AMOUNT SEROSANGUINEOUS DRAINAGE, NADIR-WOUND SKIN MOIST, INTACT. NO ERYTHEMA, PAIN 3/10. NO PICTURE PER PT. FOR PRIVACY. WOUND CARE INSTRUCTIONS INSTRUCT TO PT. AND PT'S GIRLFRIEND AN (VIA PHONE. ) ALL QUESTIONS ANSWERED AND VERBALIZES UNDERSTANDING. INSTRUCT PT. TO FOLLOW UP WITH SURGEON 7X10 DAYS UPON DISCHARGE. POC DISCUSSED WITH CHARGE NURSE. RECOMMENDATIONS: -IRRIGATE LEFT BUTTOCK WOUNDS WITH NS, PAT DRY, PACK WOUND WITH IODOFORM STRIP, AND COVER WITH DRY DRESSING, SECURED WITH TAPE DAILY AND PRN IF SOILING -KEEP AREA DRY AND CLEAN POSSIBLE. -PLEASE FOLLOW UP WITH SURGEON AND MAY DISCHARGE WITH WOUND CARE SUPPLIES.
--- NOTE | 2022-03-29 15:33 | NUR ---
03/29/22 RD FOLLOW UP COMPLETED PLEASE REFER TO NUTRITION ASSESSMENT UNDER CARE ACTIVITY FOR ESTIMATED NUTRITIONAL NEEDS. 1. CONTINUE CCHO 60 GM DIET TOLERATED 2. MONITOR PO INTAKE AND NUTRITION RELATED LAB VALUES 3. RD TO FOLLOW-UP 7 DAYS, LOW RISK REVIEWED BY RANDY OCHOA RD
[2022-03-29 16:00] VITALS: BP 114/73
[2022-03-29] MEDS: NACL 0.9% 1,000 ML IV SCH (18:10)
--- NOTE | 2022-03-29 18:45 | NUR ---
PT GIRLFRIEND AT BEDSIDE. WOUND CARE INSTRUCTION AND DEMONSTRATION WAS DONE. DISCHARGE PAPERWORK SIGN BY PT. ID BAND AND IV REMOVE. REMAINS STABLE.
--- NOTE | 2022-03-29 19:35 | NUR ---
PT LEFT, DISCHARGE TO HOME, ACCOMPANIED BY HIS GIRLFRIEND. ALL PERSONAL BELONGINGS TAKEN. REMAINS STABLE.
[2022-03-30] MEDS ORDERED: GAUZE TP SCH (13:00)
== END 2022-03-29 19:35 | disposition home or self-care (01) | DRG 710 ==
LOC: MED 14:05 → MTU 17:57
PROVIDERS: ADMIT Family Medicine; ATTEND Family Medicine
PROC: 0D9P0ZZ Drainage of Rectum, Open Approach (ICD-10-PCS; principal; 2022-03-27 11:30)
DX: A41.9 Sepsis, unspecified organism (principal); E11.10 Type 2 diabetes mellitus with ketoacidosis without coma; E44.0 Moderate protein-calorie malnutrition; K76.0 Fatty (change of) liver, not elsewhere classified; E87.1 Hypo-osmolality and hyponatremia; L02.215 Cutaneous abscess of perineum; E11.65 Type 2 diabetes mellitus with hyperglycemia; K61.1 Rectal abscess; E87.6 Hypokalemia; N41.9 Inflammatory disease of prostate, unspecified; R30.0 Dysuria; N20.0 Calculus of kidney; N43.3 Hydrocele, unspecified; Z20.822 Contact with and (suspected) exposure to COVID-19; Z68.25 Body mass index [BMI] 25.0-25.9, adult
CPT/HCPCS: 36415; 71045; 76705; 76870; 80048; 80053; 80305; 81001; 82150; 82803; 82948; 83036; 83605; 83690; 83735; 83880; 84100; 84436; 84439; 84443; 84479; 85025; 85610; 85730; 87040; 87070; 87075; 87081; 87086; 87205; 87491; 96361; 96365; 96372; 96375; 99285; C9113; J0696; J1100; J1815; J1885; J2001; J2175; J2405; J2704; J3010; J3475; J3480; J3490; J7030; J7060; Q0092